=== PATIENT | male | born 1940 | race Caucasian/White ===

== ENCOUNTER 2022-01-30 00:31 | Day surgery (SDC) | payer MEDICARE, OTHER, SELFPAY ==
[2022-01-14 13:46] VITALS: BMI 28.5
--- NOTE | 2022-01-29 14:41 | PM.HPGS ---
History of Present Illness History of Present Illness Consent: Risks, benefits, and alternatives have been discussed and questions answered. Patient agrees to proceed with procedure. Chief complaint: hx of colon polyps Narrative: Vishal Berkowitz is a 81 year old male referred for colon cancer screening. Several years ago he had removal of a large polyp. Review of Systems Review of Systems: All systems reviewed & are unremarkable except as noted in HPI and below PMFSH Social History Social History Smoking status: Never smoker Alcohol intake: never Substance use type: does not use Living arrangements: with family Spiritual care concerns: No Meds Home Medications and Allergies Home Medications Medication Instructions Recorded Confirmed Type Zn-pyg [id number] palmet 1 cap PO DAILY 01/14/22 01/14/22 History capsule coenzyme [id number] E 100 mg-100 1 cap PO DAILY 01/14/22 01/14/22 History unit capsule multivitamin with minerals-folic 1 tablet PO DAILY 01/14/22 01/14/22 History acid 0.4 mg tablet Allergies Allergy/AdvReac Type Severity Reaction Status Date / Time No Known Allergies Allergy Verified 01/14/22 13:49 Exam Const: General: alert Orientation/consciousness: patient oriented x3 Resp: Auscultation: clear to auscultation bilaterally Cardio: Rhythm: regular rhythm GI: GI Palp: Yes Soft to palpation and No Tenderness to palpation present (GI) Neuro: General: patient oriented x3 Assessment and Plan Assessment and plan (1) Colon cancer screening: Code(s): Z12.11 - Encounter for screening for malignant neoplasm of colon Status: Acute Assessment and Plan: Colonoscopy with possible biopsy or polypectomy or cautery or injection of substances.
[2022-01-30 10:18] VITALS: BMI 27.3
[2022-01-30 10:19] VITALS: BP 123/72; PULSE 66; RESP 18; TEMP 36.4; O2SAT 100
[2022-01-30] MEDS: LACTATED RINGERS 1,000 ML 150 ML IV CONT (10:35)
--- NOTE | 2022-01-30 10:54 | WPDANESEPPF ---
Anes - Initial Pre Proc Eval Procedure: Operation Date: 01/30/22 11:30 Proposed Procedures p Screening Colonoscopy - Thien Romero MD Date/Time: 01/30/22 10:54 Surgeon: Thien Romero MD Pre Op Diagnosis: hx of colon polyps Patient Data Age: 81 Gender: M Height: 1.73 m Weight: 81.4 kg Last Vital Signs Temp 97.6 F 01/30/22 10:19 Pulse 66 01/30/22 10:19 Resp 18 01/30/22 10:19 BP 123/72 01/30/22 10:19 Pulse Ox 100 01/30/22 10:19 O2 Del Method Room Air 01/30/22 10:19 Allergies Allergy/AdvReac Type Severity Reaction Status Date / Time No Known Allergies Allergy Verified 01/14/22 13:49 Home Medications Medication Instructions Recorded Confirmed Type Zn-pyg [id number] palmet 1 cap PO DAILY 01/14/22 01/14/22 History capsule coenzyme [id number] E 100 mg-100 1 cap PO DAILY 01/14/22 01/14/22 History unit capsule multivitamin with minerals-folic 1 tablet PO DAILY 01/14/22 01/14/22 History acid 0.4 mg tablet Patient hx anesthesia problems: none Family hx anesthesia problems: none Results Review: All pre-operative results and documents have been reviewed as part of the pre-operative evaluation. [facility] Social History Social History Smoking status: Never smoker Alcohol intake: never Substance use type: does not use Living arrangements: with family Spiritual care concerns: No Anes - Eval Final PreProcedure Day of Procedure 01/30/22 10:54 Patient weight: normal Heart: regular rate and rhythm Lungs: clear to auscultation Airway: Mallampati scale class II Neurological: alert and oriented Last oral intake: >/= 8 hours ASA classification: II Emergent: no Anesthetic plan: proceed Anesthesia type and monitoring: general GIVS and standard monitoring Results Review: All pre-operative results and documents have been reviewed as part of the pre-operative evaluation. Informed Consent: The patient's anesthetic plan and its attendant risks and benefits were discussed with the patient/family/POA. Questions were solicited and answers provided to the satisfaction of the patient/family/POA.
[2022-01-30] MEDS: SIMETHICONE ORAL SUSPENSION 20 MG/0.3 ML 30 ML BOTTLE 0.6 ML IRRIGATION (11:33)
[2022-01-30 11:44] VITALS: BP 103/65; PULSE 53; RESP 20; O2SAT 98
[2022-01-30 11:54] VITALS: BP 116/68; PULSE 57; RESP 15; O2SAT 99
[2022-01-30 12:04] VITALS: BP 141/80; PULSE 58; RESP 20; O2SAT 99
== END 2022-01-30 12:20 | disposition home or self-care (01) ==
PROVIDERS: PCP Internal Medicine; Visit Provider Internal Medicine Gastroenterology
PROC: 0DJD8ZZ Inspection of Lower Intestinal Tract, Via Natural or Artificial Opening Endoscopic (ICD-10-PCS; CPT 45378; principal; 2022-01-30 11:30)
DX: Z12.11 Encounter for screening for malignant neoplasm of colon (principal); Z86.010 Personal history of colon polyps; K64.8 Other hemorrhoids; K57.30 Diverticulosis of large intestine without perforation or abscess without bleeding
CPT/HCPCS: G0105; J2704; J7120